=== PATIENT | male | born 1985 | race Caucasian/White ===

== ENCOUNTER 2019-03-24 14:43 | Inpatient (IN) | payer OTHER ==
[~2019-03-24] VITALS: Ht 170.2 cm; Wt 77.1 kg
--- NOTE | 2019-03-24 15:24 | NUR ---
PTE SE RECIBE POR POR ABDOMINAL PAIN Y DOLOR PELVICO LADO DERECHO SHANIKA REFIERE PTE.
--- NOTE | 2019-03-24 16:24 | NUR ---
PTE EVALUADO POR EL DR ANGUIANOOSTA QUIEN [place]. MS Neal LARSEN ORIENTA SOBRE EL MISMO, LO CUAL REFIERE ENTENDER, REALIZA PRUEBAS DE LABORATORIO Y ADMINISTRA MEDICAMENTOS SKYLA ORDEN MEDICA Y SIGUIENDO MEDIDAS ASEPTICAS. CT PO NOTIFICADO A PERSONAL DE TURNO.
[2019-03-25] MEDS ORDERED: PERCOCET 5-3251 EACH PO (15:15)
== END 2019-03-25 15:36 | disposition home or self-care (01) | DRG 343 ==
LOC: ER 14:43 → SEC-K 21:28 → SURH 03-25 00:51
PROVIDERS: ADMIT Surgery
PROC: BW21Y0Z Computerized Tomography (CT Scan) of Abdomen and Pelvis using Other Contrast, Unenhanced and Enhanced (ICD-10-PCS; 2019-03-24)
PROC: 0DTJ4ZZ Resection of Appendix, Percutaneous Endoscopic Approach (ICD-10-PCS; principal; 2019-03-24 22:00)
DX: K35.890 Other acute appendicitis without perforation or gangrene (principal); R10.31 Right lower quadrant pain